=== PATIENT | female | born 1995 | race Caucasian/White ===

== ENCOUNTER 2016-04-18 19:44 | Emergency (ER) | payer OTHER ==
[2016-04-18 20:37] VITALS: TEMP 98; BMI 35.6
[2016-04-18] MEDS ORDERED: ACETAMINOPHEN 325 MG/TAB TABLET PO ONE (20:38)
--- NOTE | 2016-04-18 20:38 | EDPRACDOC ---
- General Information Stated Complaint: FALL Time Seen by Provider: 04/18/16 20:33 Home Medications: Home Medications Fluoxetine HCl [Prozac] 50 mg PO DAILY 04/18/16 Lamotrigine [Lamictal] 300 mg PO DAILY 04/18/16 Allergies/Adverse Reactions: Allergies Allergy/AdvReac Type Severity Reaction Status Date / Time sulfamethoxazole Allergy See Verified 04/18/16 20:42 [From Bactrim] Comments trimethoprim [From Bactrim] Allergy See Verified 04/18/16 20:42 Comments - History of Present Illness Onset: STRUCTURAL ANALYST HPI: PT STATES THAT SHE TRIPPED GETTING INTO ELEVATOR AT WORK, "TURNED" RIGHT ANKLE, COMPLAINS OF PAIN AND SWELLING TO RIGHT FOOT, STATES UNABLE TO BEAR WEIGHT DUE TO PAIN, DENIES OTHER INJURY, NO NECK OR BACK PAIN, NO LOC, NO MEDS TAKEN FOR SAME. Foot Problem Location: Reports: Right, Lateral Mechanism: Reports: Inversion Circumstances: Reports: Fall Able to Bear Weight: Limited Pain Severity: Reports: Moderate Associated Signs & Symptoms: Reports: Swelling, Ankle Pain ED Past Medical History - History Reviewed Yes Nurses notes reviewed and agree except as marked - Patient Medical History Neurological History: Reports: Seizures - Social Medical History Smoking Status: Never smoker EDM Review of Systems - Review of Systems Gastrointestinal: negative: Nausea, Vomiting Neurological: negative: Dizziness, Numbness, Weakness Musculoskeletal: Ankle, Foot Integumentary: Bruising - Physical Exam Constitutional: Alert (Awake), No apparent distress Oriented to: Time, Person, Place Last recorded Vital Signs: Oxygen Pulse Oxygen Saturation O2 Device Oxygen Flow Rate Fraction of Inspired Oxygen ( FIO2) - HEENT Head: Normal ( normocephalic) Neck: Normal (FROM, trachea at midline) - Neurologic Memory Impaired: Normal Motor Function: Normal (Normal tone, Pulses 2+ No cyanosis or edema, FROM) Cranial Nerve: Normal (CN II-X11 intact sensation, strength 5/5) Cerebellar: Normal Mood Description: Normal Perception: Normal ED Foot Problem Phys Exam - Musculoskeletal Foot: Swelling, Ecchymosis, Moderate Tenderness (PROXIMAL 5TH MTP) Ankle: Swelling, Limited ROM, Mild Tenderness (LATERALLY) Achilles Tendon: Normal Nail: Normal Nailbed: Normal Soft Tissue: Normal Digit: Normal Digit Strength: Normal Distal Function/Circulation: Normal, Capillary Refill. negative: Motor Deficit , Pulse Deficit, Sensory Deficit - Integumentary Skin: Normal - Differential Diagnosis Contusion, Metatarsal Fracture, Sprain - Additional Information DISCUSSED RESULTS OF UPT WITH PT, DISCUSSED TREATMENT/EVALUATION OPTIONS WITH PT CONSERVATIVE TXMT VS X-RAY TONIGHT, PT DOES NOT WANT TO DO X-RAY AT THIS POINT. WILL TREAT WITH ANISHA WRAP, CRUTCHES, ICE AND ELEVATION, FOLLOW UP WITH OB. Decision Time to Discharge: 21:23 - Departure Disposition: Home Condition: Stable Final Diagnosis: Early stage of Right foot sprain Qualifiers: Encounter type: initial encounter Qualified Code(s): S93.601A - Unspecified sprain of right foot, initial encounter Instructions: RICE: Routine Care for Injuries Education/Counseling Given To: Patient Education/Counseling Given Regarding: Diagnosis, Treatment, Prognosis, Follow Up Referrals: Suad Anderson DO [Staff Physician] - One Week Forms: Excuse Note Additional Instructions: WEAR ANISHA WRAP, ELEVATE AND APPLY ICE NEEDED FOR PAIN, USE TYLENOL NEEDED FOR PAIN.
[2016-04-18 21:47] VITALS: BP 122/77; PULSE 91
== END 2016-04-18 22:09 | disposition home or self-care (01) ==
LOC: EDMC 19:44
DX: O26.891 Other specified pregnancy related conditions, first trimester (principal); S93.601A Unspecified sprain of right foot, initial encounter; W01.0XXA Fall on same level from slipping, tripping and stumbling without subsequent striking against object, initial encounter; Z3A.00 Weeks of gestation of pregnancy not specified
CPT/HCPCS: 81025; 99283; J3490